=== PATIENT | female | born 1985 ===

== ENCOUNTER 2021-08-27 18:24 | Inpatient (IN) ==
[2021-08-27] MEDS ORDERED: SIMETHICONE CHEW 125 MG TABLET PO PRN (22:36)
[2021-08-27] MEDS ORDERED: MAGNESIUM SULF RIDER 4 GM/100 ML PREMIX IV PRN (22:36)
[2021-08-27] MEDS ORDERED: DEXTROSE 50% 25 GM/50 ML VIAL IV PRN (22:36)
[2021-08-27] MEDS ORDERED: diphenhydrAMINE CAP 25 MG CAPSULE PO PRN (22:36)
[2021-08-27] MEDS ORDERED: ONDANSETRON 4 MG/2 ML VIAL IV PRN (22:36)
[2021-08-27] MEDS ORDERED: GLUCAGON 1 MG VIAL IM PRN (22:36)
[2021-08-27] MEDS ORDERED: MAGNESIUM SULF RIDER 2 GM/50 ML PREMIX IV PRN (22:36)
[2021-08-27] MEDS ORDERED: hydrALAZINE 20 MG/1 ML VIAL IV PRN (22:36)
[2021-08-27] MEDS ORDERED: POTASSIUM CHLORIDE RIDER 10 MEQ/100 ML PREMIX IV PRN (22:36)
[2021-08-27] MEDS ORDERED: HYDROmorphone 2 MG/1 ML VIAL IV PRN (22:46)
[2021-08-27] MEDS: SODIUM CHLORIDE 0.9% 1,000 ML IV SCH (22:59)
[2021-08-27] MEDS ORDERED: ENOXAPARIN 40 MG/0.4 ML SYRINGE SUBCUT SCH (23:00)
[2021-08-28 06:15] LABS: Basophils % 0.2 % (0.0-0.8); Eosinophils % 0.5 % (0.00-10.9); Hematocrit 32.8 VOL% (35.7-47.0); Hemoglobin 10.5 GM/DL (12.0-16.0); Immature Granulocytes % 0.5 %; Immature Granulocytes Absolute 0.02 #; Lymphocytes # 1.3 10*3/uL (1.4-4.0); Mean Platelet Volume 13.1 FL (9.6-12.0); Monocytes % 9.4 % (1.7-12.7); Neutrophils % 56.4 % (38.7-73.9); Platelet Count 176 T/CUMM (130-400); Red Cell Distribution Width 15.6 % (9.3-17.3); White Blood Count 4.1 T/CUMM (4-12)
[2021-08-28 06:35] LABS: % Iron Saturation 22.5 % (18-50); Ferritin 15.4 ng/mL (8-252)
[2021-08-28 06:40] LABS: Albumin 2.9 G/DL (3.4-5.0); Bilirubin,Total 4.6 MG/DL (0.20-1.00); Calcium 8.2 MG/DL (8.5-10.1); Osmolality,Calculated 271.7 MOS/KG (273-304); Potassium 3.5 MMOL/L (3.5-5.1); Risk Ratio 2.66; Thyroid Stimulating Hormone 0.506 uIU/ml (0.358-3.74); Total Protein 6.6 G/DL (6.4-8.2); VLDL Cholesterol 21.6 MG/DL
[2021-08-28 06:49] LABS: Folate 13.94 NG/ML (5.38-24.0); Vitamin B12 656 PG/ML (211-911)
[2021-08-28] MEDS: PANTOPRAZOLE 40 MG VIAL IV SCH (08:35)
[2021-08-28] MEDS: SODIUM CHLORIDE 0.9% 1,000 ML IV SCH ×2 (08:36→16:44)
[2021-08-28 08:43] LABS: Sedimentation Rate-Westergren 57 MM/HR (0-20)
[2021-08-29] MEDS: SODIUM CHLORIDE 0.9% 1,000 ML IV SCH ×3 (00:47→21:36)
[2021-08-29 04:36] LABS: Basophils % 0.3 % (0.0-0.8); Hematocrit 32.6 VOL% (35.7-47.0); Hemoglobin 10.4 GM/DL (12.0-16.0); Immature Granulocytes % 0.5 %; Immature Granulocytes Absolute 0.02 #; Lymphocytes # 1.5 10*3/uL (1.4-4.0); Lymphocytes % 37.7 % (21.3-54.2); Mean Corpuscular HGB Conc 31.9 GM/DL (32-36); Mean Corpuscular Volume 82.7 FL (87-102); Mean Platelet Volume 12.6 FL (9.6-12.0); Monocytes % 11.1 % (1.7-12.7); Neutrophils % 49.4 % (38.7-73.9); Platelet Count 184 T/CUMM (130-400); Red Blood Count 3.94 MC/CUMM (3.8-5.5); Red Cell Distribution Width 15.9 % (9.3-17.3)
[2021-08-29 04:45] LABS: INR 1.1; PT Patient Result 12.6 SECS (10.5-12.0)
[2021-08-29 05:04] LABS: Bilirubin,Total 4.3 MG/DL (0.20-1.00); Calcium 8.6 MG/DL (8.5-10.1); Osmolality,Calculated 275.4 MOS/KG (273-304); Potassium 3.6 MMOL/L (3.5-5.1); Total Protein 7.2 G/DL (6.4-8.2)
[2021-08-29] MEDS ORDERED: INDOMETHACIN SUPP 50 MG SUPP RECTAL ONE (08:00)
[2021-08-29] MEDS ORDERED: LACTATED RINGERS 1,000 ML IV SCH (08:00)
[2021-08-29 08:59] LABS: Hemoglobin A1 (Alkaline) 97.5 % (96.5-98.5); Hemoglobin A2 (Alkaline) 2.5 % (1.5-3.5)
[2021-08-29] MEDS: PANTOPRAZOLE 40 MG VIAL IV SCH (10:59)
[2021-08-29] MEDS ORDERED: fentaNYL 100 MCG/2 ML VIAL ONE (13:00)
[2021-08-29] MEDS ORDERED: ONDANSETRON 4 MG/2 ML VIAL ONE (14:19)
[2021-08-29] MEDS ORDERED: DEXAMETHASONE 4 MG/1 ML VIAL ONE (14:19)
[2021-08-29] MEDS ORDERED: propofoL 200 MG/20 ML VIAL IV ONE (14:19)
[2021-08-29] MEDS ORDERED: SUCCINYLCHOLINE 200 MG/10 ML VIAL ONE (14:19)
[2021-08-29] MEDS ORDERED: ROCURONIUM 50 MG/5 ML VIAL IV ONE (14:19)
[2021-08-29] MEDS ORDERED: SEVOFLURANE 1 UNIT/15 MINUTE INH ONE (14:19)
[2021-08-29] MEDS ORDERED: LIDOCAINE 2% 5 ML VIAL ONE (14:19)
[2021-08-30 05:32] LABS: Basophils % 0.2 % (0.0-0.8); Hematocrit 31.9 VOL% (35.7-47.0); Hemoglobin 10.6 GM/DL (12.0-16.0); Lymphocytes # 1.3 10*3/uL (1.4-4.0); Lymphocytes % 26.4 % (21.3-54.2); Mean Corpuscular HGB Conc 33.2 GM/DL (32-36); Mean Corpuscular Volume 81.4 FL (87-102); Mean Platelet Volume 13.4 FL (9.6-12.0); Monocytes % 12.3 % (1.7-12.7); Neutrophils % 61.1 % (38.7-73.9); Platelet Count 181 T/CUMM (130-400); Red Blood Count 3.92 MC/CUMM (3.8-5.5); Red Cell Distribution Width 15.7 % (9.3-17.3); White Blood Count 4.7 T/CUMM (4-12)
[2021-08-30 05:41] LABS: Albumin 2.9 G/DL (3.4-5.0); Calcium 8.2 MG/DL (8.5-10.1); Osmolality,Calculated 270.8 MOS/KG (273-304); Potassium 3.6 MMOL/L (3.5-5.1)
[2021-08-30 06:12] LABS: Albumin 2.9 G/DL (3.4-5.0); Bilirubin,Direct 1.89 MG/DL (0.0-0.20); Bilirubin,Indirect 0.6 MG/DL (0.0-1.0); Bilirubin,Total 2.5 MG/DL (0.20-1.00); Total Protein 7.2 G/DL (6.4-8.2)
[2021-08-30] MEDS ORDERED: INDOCYANINE GREEN 25 MG VIAL IV ONE (07:00)
[2021-08-30] MEDS: PANTOPRAZOLE 40 MG VIAL IV SCH (09:48)
[2021-08-30] MEDS ORDERED: LIDOCAINE 1%/EPI INJ 20 ML VIAL ONE (11:55)
[2021-08-30] MEDS ORDERED: BUPIVACAINE MPF 0.25% 30 ML VIAL ONE (11:55)
[2021-08-30] MEDS ORDERED: TISSUE ADHESIVE 1 EACH APPLICATOR TOP ONE (11:55)
[2021-08-30] MEDS ORDERED: fentaNYL 100 MCG/2 ML VIAL ONE (12:50)
[2021-08-30] MEDS ORDERED: MIDAZOLAM 2 MG/2 ML VIAL ONE (12:50)
[2021-08-30] MEDS ORDERED: ROCURONIUM 50 MG/5 ML VIAL IV ONE (12:55)
[2021-08-30] MEDS ORDERED: SEVOFLURANE 1 UNIT/15 MINUTE INH ONE (12:55)
[2021-08-30] MEDS ORDERED: LIDOCAINE 2% 5 ML VIAL ONE (12:55)
[2021-08-30] MEDS ORDERED: propofoL 200 MG/20 ML VIAL IV ONE (12:55)
[2021-08-30] MEDS ORDERED: DEXAMETHASONE 4 MG/1 ML VIAL ONE (13:21)
[2021-08-30] MEDS ORDERED: ONDANSETRON 4 MG/2 ML VIAL ONE (13:21)
[2021-08-30] MEDS ORDERED: KETOROLAC 30 MG/1 ML VIAL ONE (13:21)
[2021-08-30] MEDS ORDERED: ceFAZolin 1,000 MG VIAL ONE (13:30)
[2021-08-30] MEDS ORDERED: GLYCOPYRROLATE 0.4 MG/2 ML VIAL ONE (14:01)
[2021-08-30] MEDS ORDERED: LACTATED RINGERS 1,000 ML IV ONE (14:08)
[2021-08-30] MEDS ORDERED: MEPERIDINE 25 MG/1 ML VIAL ONE (14:22)
[2021-08-30] MEDS ORDERED: HYDROmorphone 2 MG/1 ML VIAL IV PRN (14:24)
[2021-08-30] MEDS ORDERED: MEPERIDINE 25 MG/1 ML VIAL IV PRN (14:24)
[2021-08-30] MEDS ORDERED: diphenhydrAMINE 50 MG/1 ML VIAL IV PRN (14:24)
[2021-08-30] MEDS ORDERED: PROMETHAZINE INJ 25 MG in SODIUM CHLORIDE 0.9% 50 ML IV PRN (14:24)
[2021-08-30] MEDS ORDERED: ONDANSETRON 4 MG/2 ML VIAL IV PRN (14:24)
[2021-08-30] MEDS: SODIUM CHLORIDE 0.9% 1,000 ML IV SCH ×2 (14:32→21:52)
[2021-08-30] MEDS: HYDROmorphone 2 MG/1 ML VIAL IV PRN ×2 (16:26→21:46)
[2021-08-31] MEDS: HYDROmorphone 2 MG/1 ML VIAL IV PRN (02:08)
[2021-08-31 05:08] LABS: Basophils % 0.1 % (0.0-0.8); Eosinophils % 0.1 % (0.00-10.9); Hematocrit 31.7 VOL% (35.7-47.0); Hemoglobin 10.3 GM/DL (12.0-16.0); Immature Granulocytes % 0.3 %; Immature Granulocytes Absolute 0.03 #; Lymphocytes # 1.7 10*3/uL (1.4-4.0); Lymphocytes % 17.6 % (21.3-54.2); Mean Corpuscular HGB Conc 32.5 GM/DL (32-36); Mean Corpuscular Volume 81.9 FL (87-102); Mean Platelet Volume 12.2 FL (9.6-12.0); Monocytes % 6.5 % (1.7-12.7); Neutrophils % 75.4 % (38.7-73.9); Platelet Count 191 T/CUMM (130-400); Red Blood Count 3.87 MC/CUMM (3.8-5.5); Red Cell Distribution Width 15.9 % (9.3-17.3); White Blood Count 9.4 T/CUMM (4-12)
[2021-08-31 05:37] LABS: Albumin 2.9 G/DL (3.4-5.0); Calcium 7.9 MG/DL (8.5-10.1); Osmolality,Calculated 276.5 MOS/KG (273-304); Potassium 3.1 MMOL/L (3.5-5.1)
[2021-08-31] MEDS: SODIUM CHLORIDE 0.9% 1,000 ML IV SCH (06:03)
[2021-08-31] MEDS: POTASSIUM CHLORIDE 20 MEQ TABLET PO PRN ×2 (09:39→11:29)
[2021-08-31] MEDS: PANTOPRAZOLE 40 MG VIAL IV SCH (09:39)
[2021-08-31 11:34] VITALS: BP 113/69
== END 2021-08-31 12:00 | disposition home or self-care (01) | DRG 419 ==
LOC: SUATTDRO 21:36 → N.5E 21:36
PROVIDERS: ADMIT Internal Medicine; ATTEND Internal Medicine
PROC: ERCPWSP (ICD-10-PCS; 2021-08-29 12:05)